=== PATIENT | female | born 1965 | race Caucasian/White ===

== ENCOUNTER 2023-08-27 08:00 | Outpatient (RCR) | payer BC, SELFPAY ==
--- NOTE | 2023-06-18 14:44 | HP.PTEVAL_ITS ---
Patient's Visit Information Visit Information Visit Information: TAISHA PETERSON is a 57 year old F referred to Physical Therapy by Dr. Maria Esther Chambers MD with a diagnosis of INCONTINENCE. Date of Evaluation: 06/17/23 Physical Therapist: Prabha Gibbs PT, Cert MDT Visit Plan Frequency: 1x/Week Duration: 2-4 Months Plan: PF THERAPY FOR STRENGTHENING, LENGTHENING/RELAXATION AND ENDURANCE TRAINING. URINARY URGE AND FREQUENCY EDUCATION. HEALTHY BLADDER HABIT EDUCATION. TRAINING IN COORDINATION OF PELVIC FLOOR MUSCULATURE WITH HIP AND CORE (TRANSVERSE ABDOMINUS) MUSCULATURE. CORE STRENGTHENING. ROSETTA LE ROM, STRETCHING AND STRENGTHENING. TRAINING IN ABDOMINAL CAVITY PRESSURE MGMT WITH ADL'S. 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 URINARY LEAKING. Present since: AT LEAST 3 YEARS Pain Scale: N/A Is it getting better, worse or staying the same: GETTING BETTER Commenced as a result of: POSSIBLY DUE TO POST menopausal weight gain. Symptoms at onset: NOT BEING ABLE TO GET TO THE BATHROOM IN TIME EVEN WHEN BATHROOM WAS 5 STEPS AWAY. Worse: Caffeine, Pulling into driveway, coughing, bending, lifting. Better: Gemtesa, Disturbed sleep: Typically gets up to urine one time a night - pre and post Gemtesa. Previous history/Previous treatment: PRESCRIPTION MEDICATIONS FROM PRIMARY CARE PHYSICIAN ([facility]). Treatment this episode: GEMTESA. DIET CHANGES Coughing/sneezing/straining: POSITIVE UI FOR COUGHING. Gait: NORMAL How long can you delay the need to urinate: ABOUT 15 MINUTES ON GEMTESA (STARTED GEMTESA MAY 02 2023). Prolapse (Falling out feeling): NO Frequency of Urination: ABOUT EVERY 2.5 HRS Ability to stop urine flow: YES Ability to initiate urine stream: YES Dyspareunia: NO Bowel Incontinence: NO Accidents: NO Unexplained weight loss: NO Imaging: NONE RECENT. PMH/Recent major surgery: HYPERLIPIDEMIA. H/O CHIROPRACTIC X 3 STARTING FOR HIP TIGHTNESS NEEDED ALSO DOES STRETCH PROGRAM AND GETS SPINE ADJUSTED. MASSAGE EVERY 2 WKS ABLE X ABOUT 3 YEARS. Objective Objective: Sitting/Standing Posture: FAIR. NORMAL LORDOSIS. NO RELEVANT LATERAL SHIFT Other Observations: INDEP GAIT AND TRANSFERS Sensory deficit: ROSETTA LE LIGHT TOUCH SENSATION GROSSLY INTACT AND SYMMETRICAL ROM deficit: ROSETTA HIP ER TIGHTNESS Motor deficit: ROSETTA LE'S GROSSLY 5/5 WITH MMT'ING. Dural Signs: NEGATIVE ROSETTA LE'S. Lumbar mvmt loss: flex - NIL ext - NIL R SG - NIL L SG - MIKAEL Core strength: FAIR Palpation: INTERNAL VAGINAL MANUAL PELVIC FLOOR TESTING REVEALS 3/5, 4 SEC STRENGTH X 3 REPS. FUNCTIONAL SCREEN: Incontinence Impact Questionnaire Score: 12 Urogenital Distress Inventory Score: 6 Goals Goal 1:: DECREASE URINARY LEAKAGE EPISODES TO ONE OR LESS PER DAY Goal Time Frame: 8-12 Weeks Goal 2:: PATIENT WILL SUCCESSFULLY DELAY VOIDING LONG NEEDED WHEN URGENCY OCCURS TO SUCCESSFULLY MAKE IT TO THE BATHROOM. Goal Time Frame: 8-12 Weeks Goal 3:: PATIENT WILL DEMONSTRATE/COMMUNICATE 10 CONSISTENT AND CONSECUTIVE 10 SECOND PELVIC FLOOR MUSCLE CONTRACTIONS TO DEMONSTRATE IMPROVED PELVIC FLOOR ENDURANCE. Goal Time Frame: 8-12 Weeks Goal 4:: DEVELOP HEALTHY FLUID INTAKE HABITS WITH FLUID INTAKE OF ? BODY WEIGHT IN OUNCES PER DAY AND 2/3 BEING WATER. Goal Time Frame: 2-4 Weeks Goal 5:: NORMALIZE VOIDING FREQUENCEY TO EVERY 3-4 HOURS. Goal Time Frame: 4-6 Weeks Goal 6:: PATIENT WILL BE INDEP WITH A HEP/HOME INSTRUCTIONS FOR CONTINUED IMPROVEMENT ONCE FORMAL PHYSICAL THERAPY CONCLUDES. Goal Time Frame: 8-12 Weeks Rehabilitation Potential Physical Therapy Diagnosis: MIXED STRESS AND URGE INCONTINENCE. CONTRIBUTING FACTORS INCLUDE DECREASED CORE STABILITY CONTROL Rehabilitation Potential: Good Anticipated Interventions Patient/Client Instruction: Educate patient on: Condition, Plan of Care and Risk Factors For the Purpose of:: To improve self management Therapeutic Exercise to Include: Strength training, Endurance training, Body mechanics, Flexibilty training and Dynamic Lumbar Stabilization For the Purpose of:: To increase ROM, To improve muscle performance and motor fu nction, To increase tolerance to activity/condition/position and To improve ability of physical actions for home/community/work/leisure Text: Thank you for the opportunity to evaluate your patient. For Medicare and Medicare HMO plans, please review the plan of care and approve it. It will need to be FAXED BACK to us at [phone] for Medicare purposes. For Medicare only, by signing this I certify the plan of care. Please let me know if there are questions or concerns regarding this plan of care. Physician Signature: Date:
--- NOTE | 2023-09-10 13:27 | HP.PTDCSUM ---
Discharge Summary D/C summary: It has been my pleasure to treat TAISHA PETERSON referred by Dr. Maria Esther Tay MD, with the diagnosis of INCONTINENCE for a total of 11 visit(s). Discharge Date: Please see the following information for a summary of their discharge status. Subjective Subjective: PATIENT REPORTS SHE DID THE BLADDER DIARY AND SHE HAS BEEN ABLE TO RELATE HER URGE INCONTINENCE TO caffeine AND OTHER LEAKING TO WAITING TOO LONG. HAD FOLLOW UP WITH DR. TAY AND DOES NOT NEED TO SEE HER AGAIN FOR ANOTHER YEAR. Overall Improvement % Improvement: 85 Objective Objective/Function: PATIENT WAS SEEN TODAY FOR RE-ASSESSMENT OF PROGRESS TOWARD THE SET PT GOALS AND THE NEED FOR FURTHER PHYSICAL THERAPY VS READINESS FOR DISCHARGE. THIS PATIENT IS MET AND/OR MADE GOOD PROGRESS TOWARD ALL PT GOALS AND IS APPROPRIATE FOR AND AGREEABLE TO DISCHARGE AT THIS TIME TO [facility]. UPON EXAM TODAY: Palpation: INTERNAL VAGINAL MANUAL PELVIC FLOOR TESTING REVEALS IMPROVEMENT FROM 3/5, 4 SEC STRENGTH X 3 REPS AT EVAL TO 4/5 TO 10 SEC X 1 REP TODAY FOLLOWED BY DIMINISHED STRENGTH. FUNCTIONAL SCREEN: Incontinence Impact Questionnaire Score: HAS IMPROVED FROM 12 AT EVAL TO 4 TODAY. Urogenital Distress Inventory Score: HAS IMPROVED FROM 6 AT EVAL TO 2 TODAY. Goals Goal 1:: DECREASE URINARY LEAKAGE EPISODES TO ONE OR LESS PER DAY Goal Progress: Goal Met Goal 2:: PATIENT WILL SUCCESSFULLY DELAY VOIDING LONG NEEDED WHEN URGENCY OCCURS TO SUCCESSFULLY MAKE IT TO THE BATHROOM. Goal Progress: Progressing Goal 3:: PATIENT WILL DEMONSTRATE/COMMUNICATE 10 CONSISTENT AND CONSECUTIVE 10 SECOND PELVIC FLOOR MUSCLE CONTRACTIONS TO DEMONSTRATE IMPROVED PELVIC FLOOR ENDURANCE. Goal Progress: Progressing Goal 4:: DEVELOP HEALTHY FLUID INTAKE HABITS WITH FLUID INTAKE OF ? BODY WEIGHT IN OUNCES PER DAY AND 2/3 BEING WATER. Goal Progress: Progressing Goal 5:: NORMALIZE VOIDING FREQUENCEY TO EVERY 3-4 HOURS. Goal Progress: Goal Met Goal 6:: PATIENT WILL BE INDEP WITH A HEP/HOME INSTRUCTIONS FOR CONTINUED IMPROVEMENT ONCE FORMAL PHYSICAL THERAPY CONCLUDES. Goal Progress: Goal Met Plan Plan: D/C. D/C Information d/c sentence: If there are questions or concerns regarding this patient's physical therapy, please feel free to call me at [phone]. Thank you for the referral of this patient. Sincerely, Prabha Gibbs, PT, Cert MDT Balance/Gait/Functional tests Improvement % Improvement: 85
== END 2023-08-27 19:00 | disposition home or self-care (01) ==
LOC: PT 08:00
PROVIDERS: PCP Nurse Practitioner Family; Referring Provider Urology; Visit Provider Urology
DX: R32 Unspecified urinary incontinence (principal)
CPT/HCPCS: 97162; 97530

== ENCOUNTER 2024-04-02 09:34 | Day surgery (SDC) | payer BC, SELFPAY ==
[2024-04-02] VITALS (8 sets, daily range): BP systolic 97–116; BP diastolic 58–82; PULSE 56–80; RESP 16; TEMP 36–36.3; O2SAT 95–100; BMI 34.0
[2024-04-02] MEDS: Lactated Ringers 1,000 ML 15 ML IV (10:15)
--- NOTE | 2024-04-02 11:05 | PCM.PRE.AN2 ---
ASA Classification* ASA Classification ASA Classification: 2 Assessment & Plan Anesthesia* Anesthesia Assessment Anesthesia Assessment: Discussed sedation and/or anesthesia options, risks, benefits, and alternatives with patient/parents/legal guardian/POA. Questions invited. The patient/parents/legal guardian/POA seems to understand and agrees to proceed with anesthesia plan. Reviewed the physical assessment, medical history, allergy history and patient home medications list prior to surgery/procedure/anesthetic and documented any changes. Performed airway and anesthesia risk assessments. Anesthesia Type Anesthesia Type: MAC History Source History Obtained from:: Patient and Chart Anesthesia Focused Assessment* Temperature: 97.2 F Pulse Rate: 72 Blood Pressure: 116/78 Respiratory Rate: 16 Pulse Ox: 99 Oxygen Delivery Method: Room Air Airway Assessment Mouth opens: >3 cm Mallampati Score: II Teeth Condition: Caps/Crowns (Patient has a couple crowns on her molars. 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 When Was Last Pacemaker Check QUESTION #4 FULL TEXT: You/Your Family Experience fever (hyperthermia) with Anesthesia Last Oral Intake Last Oral intake: Last Oral Intake NPO since 22:00 04/02/24 10:06 Meds taken in AM with sips of No 04/02/24 10:06 water? Meds patient instructed to take am of surgery PONV PONV - test kitchen home economist: PONV - test kitchen home economist Female Yes 04/01/24 11:39 HX of Motion Sickness No 04/01/24 11:39 HX of N/V After Surgery Yes 04/01/24 11:39 Non-Smoker Yes 04/01/24 11:39 Duration of Surgery greater No 04/01/24 11:39 than 60 minutes Number of Risk Factors 3 04/01/24 11:39 PONV Score Moderate Risk 04/01/24 11:39 Height & Weight Height & Weight: Anesthesia: Height & Weight Height 5 ft 6 in 04/02/24 10:06 Weight: 95.5 kg 04/02/24 10:06 Body Mass Index (BMI) 34.0 04/02/24 10:06 Respiratory Assessment Respiratory Assessment - test kitchen home economist: Respiratory Tract Infection Hx - test kitchen home economist Hx Respiratory Tract Infection No 04/01/24 11:39 STOP Sleep Apnea STOP Sleep Apnea - test kitchen home economist: STOP Sleep Apnea - test kitchen home economist Hx Hypertension No 04/01/24 11:39 Hx Sleep Apnea No 04/01/24 11:39 CPAP BIPAP Do you snore loudly (louder No 04/01/24 11:39 than talking or can be heard Do you often feel tired/ No 04/01/24 11:39 fatigued/ sleepy during daytime? Has anyone observed you stop No 04/01/24 11:39 breathing during sleep? STOP Results Negative 04/01/24 11:39 QUESTION #5 FULL TEXT : Do you snore loudly (louder than talking or can be heard through closed doors)? Tobacco Use History Tobacco Use History - test kitchen home economist: Tobacco Use History - test kitchen home economist Tobacco Use Smoking Status Never smoker 04/01/24 11:39 Hx Tobacco Use No 04/01/24 11:39 Years Smoking Packs Smoked per Day Smoking Cessation Date was within the last 15 years Hx Smoking Cessation Date Hx Smoking Cessation Counseling Hematologic Medial History Hematologic Hx - test kitchen home economist: Hematologic Medical Hx - quality facilitator Hx of Blood Transfusion No 04/01/24 11:39 Hx of Transfusion in last 3 No 04/01/24 11:39 Months Date of Last Transfusion (if within last 3 months) Ever experience any problems No 04/01/24 11:39 with transfusion(s)? Specify any problems Hx of Preganancy in last 3 No 04/01/24 11:39 Months Nurse Filling Out Transfusion VCHRISTIN 04/01/24 11:39 & Questions: Date: 04/01/24 04/01/24 11:39 Time: 11:40 04/01/24 11:39 Patient unable to answer at this time (ie. confused, unrespo /Reproduction History /Reproductive History - test kitchen home economist: /Reproductive Hx- test kitchen home economist Hx Now No 04/01/24 11:39 Gestational Age (in weeks): EDC: Hx Hx Para Hx Section SAB No 04/01/24 11:39 Active Medications Active Medications: Current Medications Generic Name Dose Route Start Last Admin Trade Name Freq PRN Reason Stop Dose Admin Cefazolin Sodium 2 gm/ Sodium 110 mls @ 150 mls/hr 04/02/24 12:20 Chloride IV 04/02/24 13:03 PREOP ONE Lactated Ringer's 1,000 mls @ 15 mls/hr 04/02/24 10:15 04/02/24 10:15 IV 15 mls/hr .Q48H JACQUELINE Administration PFSH Medical History Wears glasses Post-menopausal History of steroid therapy High cholesterol Non-smoker Home Medications ?Medication ?Instructions ?Recorded ?Last Taken ?Type atorvastatin 20 mg tablet 20 mg PO DAILY 04/01/24 04/01/24 History vibegron 75 mg tablet (Gemtesa) 75 mg PO DAILY 04/01/24 04/01/24 History Allergy/AdvReac Type Severity Reaction Status Date / Time No Known Allergies Allergy Verified 04/02/24 10:03 Surgical History (Updated 04/01/24 @ 11:39 by Rosemarie Erwin) Hx of bilateral breast reduction surgery Social History Smoking Status: Never smoker Review of Systems (Anesthesia) ROS Narrative System reviewed and no additional complaints, except as documented.
[2024-04-02] MEDS: Cefazolin 2 GM in 0.9% Normal Saline (100mL Bag) 100 ML IV (11:13)
--- NOTE | 2024-04-02 11:17 | DCINST_ITS ---
Discharge Instructions Diet Discharge Diet: No restrictions Activity Discharge Activity: Return to Normal Activity Additional Activity Instructions:: No strenuous activity for the next 2 days. Dressing / Incision Call your doctor if your incision/area has: Continuous Slow Oozing, Sudden Increased Bleeding and Foul Smelling Discharge Call your doctor if you observe: Fever of 101 or Higher, Inability to urinate and Inability to have a bowel movement Follow Up Care Please Follow Up With: Maria Esther Chambers MD When: The office will call the patient to make follow-up arrangements Test Results: Test results from this visit will be discussed in further detail at your follow- up appointment, if applicable. Discharge Plan Admission Attending Provider: Maria Esther Chambers Primary Care Provider: JASVIR GEE Instructions Print Language: Bangladeshi Discharge Orders/Prescriptions Prescriptions: New cephalexin 500 mg capsule 500 mg PO Q12 3 Days Qty: 6 0RF Continued atorvastatin 20 mg tablet 20 mg PO DAILY Gemtesa 75 mg tablet 75 mg PO DAILY Referrals / Follow Up: JASVIR GEE CRNP [Primary Care Provider] - Disposition Disposition (needs filled in before D/C Order can be placed): Home, Self Care
--- NOTE | 2024-04-02 11:18 | OP.PCM_ITS ---
Report of Operation Date of Procedure: 04/02/24 Pre-Operative Diagnosis: Intrinsic sphincter deficiency, stress urinary inconti nence Post-Operative Diagnosis: Same Surgery/Procedure Performed:: Cystoscopy, Bulkamid injection Surgeon: Maria Esther Chambers Type of Anesthesia: MAC Description of Procedure: The patient is a 58-year-old female with intrinsic sphincter deficiency and stress incontinence who presents for intervention with Bulkamid. Informed consent was obtained. The patient was taken to the operating room and placed on the operating room table. Anesthesia monitored the head, neck, airway, IV access and vital signs throughout the case. Once anesthesia was appropriate ministered, she was placed into dorsolithotomy position was prepped and draped in usual sterile fashion. The Bulkamid scope was then used to cannulate the urethra and the needle was extended into the bladder lumen to the second line and the whole system was retracted to the point where the needle was at the bl adder neck. The needle was then inserted at the 2 cm point with the bevel pointed medially at the 7 o'clock position and one half of a syringe of Bulkamid was injected. The sheath was then rotated to the 5 o'clock position in the process was repeated here, then at the 1:00 followed by the 11 o'clock position. At this time a total of 1.25 units of Bulkamid were injected and the decision was made to place more product at the 6 o'clock position. At this time the pillows were seen to coapt appropriately and the scope was removed. The patient was then awakened and taken to the recovery room in good condition. There were no complications during this procedure. Grafts/Implants Used: Bulkamid Complications None Admit VTE Documentation VTE Present on Admission: Yes VTE Mechan Device Prophylaxis: SCD's VTE Pharm Prophylaxis ordered?: No Reason prophylaxis not ordered:: Treatment Not Indicated
--- NOTE | 2024-04-02 12:22 | PCM.POST.ANE ---
Anesthesia: Postop Eval I Current Vital Signs Temperature: 97.1 F Pulse Rate: 80 Blood Pressure: 108/58 Respiratory Rate: 16 Pulse Ox: 95 Assessment Airway patent: Yes Spontaneous unlabored respirations: Yes Mental status: Awake and Calm nausea: No Vomiting: No Anesthesia Complication: No Fluid Hydration Crystalloid volume administer (ml): 700 Total IV fluid infused: 700 Progress Note Anesthesia document: Postop Eval 1 completed: Yes
== END 2024-04-02 14:15 | disposition home or self-care (01) ==
LOC: SDC 09:38 → AC 10:32
PROVIDERS: PCP Nurse Practitioner Adult Health; Referring Provider Urology; Visit Provider Urology
PROC: 3E0K8GC Introduction of Other Therapeutic Substance into Genitourinary Tract, Via Natural or Artificial Opening Endoscopic (ICD-10-PCS; CPT 52287; principal; 2024-04-02 11:15)
DX: N36.42 Intrinsic sphincter deficiency (ISD) (principal); N39.3 Stress incontinence (female) (male); E78.00 Pure hypercholesterolemia, unspecified; Z79.899 Other long term (current) drug therapy
CPT/HCPCS: 51715; 00910; J7120